=== PATIENT | female | born 1945 | race Caucasian/White ===

== ENCOUNTER → 2017-01-09 08:03 | Outpatient (CLI) | payer MEDICARE, OTHER ==
[2016-03-14 15:59] VITALS: BMI 30.8
[~2017-01-09 08:03] MED LIST: ACETAMINOPHEN500 M1 PO; BENADRYL25 MG PO; COLACE100 MG PO; COZAAR50 MG PO; DULCOLAX10 MG/SUPP RC; ELIQUIS2.5 MG PO; FISH OIL 1,2001 CA1 PO; HYDROCODONE-APA1 TAB PO; IBUPROFEN800 MG PO; LASIX20 MG PO; LIPITOR40 MG PO; MIRALAX17 GM PO; MOBIC7.5 MG PO; NALOXONE IV; OXYCODONE HCL5 MG PO; POTASSIUM99 M1 PO; SALINE FLUSH10 ML IV; SENOKOT-S TABLE1 TAB PO; TORADOL30 MG/ML IV; ZOFRAN4 MG PO
== END | disposition home or self-care (01) ==
LOC: D.CT 08:03
DX: R13.10 Dysphagia, unspecified (principal)

== ENCOUNTER → 2017-10-08 13:41 | Outpatient (CLI) | payer MEDICARE, OTHER ==
[2016-03-14 15:59] VITALS: BMI 30.8
== END | disposition home or self-care (01) ==
LOC: D.MRI 13:30
DX: M25.562 Pain in left knee (principal)

== ENCOUNTER → 2019-04-02 09:51 | Outpatient (CLI) | payer MEDICARE ==
[2016-03-14 15:59] VITALS: BMI 30.8
== END | disposition home or self-care (01) ==
LOC: D.NM 09:30
PROVIDERS: ATTEND Family Medicine
DX: K21.9 Gastro-esophageal reflux disease without esophagitis (principal)

== ENCOUNTER 2019-09-22 08:00 | Outpatient (CLI) | payer MEDICARE, BC ==
[2016-03-14 15:59] VITALS: BMI 30.8
== END 2019-09-22 08:30 | disposition home or self-care (01) ==
LOC: D.MAMMO 08:00
PROVIDERS: ATTEND Family Medicine
DX: Z12.31 Encounter for screening mammogram for malignant neoplasm of breast (principal)

== ENCOUNTER → 2019-11-14 10:00 | Outpatient (CLI) | payer MEDICARE, BC ==
[2016-03-14 15:59] VITALS: BMI 30.8
== END | disposition home or self-care (01) ==
LOC: D.MAMMO 11-05 09:30
PROVIDERS: ATTEND Family Medicine
DX: R92.8 Other abnormal and inconclusive findings on diagnostic imaging of breast (principal)

== ENCOUNTER → 2020-04-14 09:35 | Outpatient (CLI) | payer MEDICARE, BC ==
[2016-03-14 15:59] VITALS: BMI 30.8
== END | disposition home or self-care (01) ==
LOC: D.US 09:35
PROVIDERS: ATTEND Family Medicine
DX: N60.01 Solitary cyst of right breast (principal)

== ENCOUNTER → 2020-04-30 08:31 | Outpatient (CLI) | payer MEDICARE, BC ==
[2016-03-14 15:59] VITALS: BMI 30.8
== END | disposition home or self-care (01) ==
LOC: D.MRI 08:31
PROVIDERS: ATTEND Family Medicine
DX: G89.29 Other chronic pain (principal)

== ENCOUNTER 2020-12-31 14:00 | Outpatient (CLI) | payer MEDICARE, BC ==
[2016-03-14 15:59] VITALS: BMI 30.8
== END 2020-12-31 14:30 | disposition home or self-care (01) ==
LOC: D.MAMMO 14:00
PROVIDERS: ATTEND Family Medicine
DX: R92.8 Other abnormal and inconclusive findings on diagnostic imaging of breast (principal)

== ENCOUNTER 2021-01-12 13:00 | Outpatient (CLI) | payer MEDICARE, BC ==
[2016-03-14 15:59] VITALS: BMI 30.8
== END 2021-01-12 23:59 | disposition home or self-care (01) ==
LOC: D.MAMMO 13:00
PROVIDERS: ATTEND Family Medicine
DX: R92.8 Other abnormal and inconclusive findings on diagnostic imaging of breast (principal)

== ENCOUNTER 2021-01-14 21:25 | Outpatient (CLI) | payer MEDICARE, BC ==
[2016-03-14 15:59] VITALS: BMI 30.8
== END 2021-01-14 23:59 | disposition home or self-care (01) ==
LOC: D.MAMMO 21:25
PROVIDERS: ATTEND Family Medicine
DX: R92.8 Other abnormal and inconclusive findings on diagnostic imaging of breast (principal)